=== PATIENT | female | born 2005 | race Caucasian/White ===

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

== ENCOUNTER → 2024-08-27 | Outpatient (CLI) | payer BC, SELFPAY | END | disposition home or self-care (01) | LOC: LABSPEC 22:14 | PROVIDERS: PCP Nurse Practitioner; Referring Provider Nurse Practitioner; Visit Provider Nurse Practitioner | DX: N30.90 Cystitis, unspecified without hematuria (principal); R30.0 Dysuria | CPT/HCPCS: 87077; 87086; 87088 ==

== ENCOUNTER 2024-12-03 13:39 | Emergency (ER) | payer BC, SELFPAY ==
[2024-12-03 13:40] VITALS: BP 135/70; PULSE 76; RESP 16; TEMP 36.9; O2SAT 99; BMI 37.4
--- NOTE | 2024-12-03 14:33 | EKG12_ITS ---
Test Reason : SYNCOPE Blood Pressure : */* mmHG Vent. Rate : 70 BPM Atrial Rate : 70 BPM P-R Int : 128 ms QRS Dur : 94 ms QT Int : 376 ms P-R-T Axes : -12 27 11 degrees QTcB Int : 406 ms Normal sinus rhythm Normal ECG Confirmed by Shayan Aguero ([id number]), editor in chief BO CHAVES ([id number]) on 12/04/2024 10:21:10 AM Referred By: Confirmed By: Shayan Aguero
--- NOTE | 2024-12-03 14:33 | RAD_ITS ---
PROCEDURE: CHEST PA AND LATERAL 12/03/2024 REASON FOR EXAM: SYNCOPE TECHNIQUE: Procedure Code: RADCXR Modality: DX Procedure: CHEST PA AND LATERAL COMPARISON: None FINDINGS: Hardware: EKG electrodes are seen. Heart: The heart size is normal. Mediastinum: The mediastinal contour is unremarkable. Lungs: The lungs are clear. Bones: The bones are unremarkable. RAD/Chest PA and Lateral IMPRESSION: NO ACUTE FINDINGS. Reading Location: [id number]
--- NOTE | 2024-12-03 14:48 | EX.ED.DYSGE1 ---
HPI History of Present Illness Chief Complaint: Syncope Narrative Narrative: Patient is a 19-year-old female past medical history of migraines, tachycardia who presents to the emergency department chief complaint of elevated heart rate and passing out. Patient states that last week she had 2 episodes where she folic her heart was racing really fast while working out for softball. She states that she passed out and when she woke up and EMS was there. They noted that her heart rate was around 193 bpm at that point time. States that this happened again and her heart rate was in the 180s. She states that after this episode she is extremely fatigued. Patient states that this has never happened before and parents at bedside deny any cardiac arrhythmias or cardiac issues from a family standpoint which would be similar to this. She denies any recent travel history denies any history of blood clots. States that she currently is on her menstrual cycle. [facility] Medical History Acute maxillary sinusitis, unspecified COVID-19 Migraine aura, persistent, intractable Acute maxillary sinusitis, unspecified Acute pharyngitis, unspecified Acne Metrorrhagia Right rotator cuff tendonitis Tendonitis of elbow, left celiac through scope and blood test fx L Fot 3 areas Home Medications ?Medication ?Instructions ?Recorded ?Last Taken ?Type albuterol sulfate 90 mcg/actuation 2 puff inhalation Q4H PRN 06/09/21 Unknown Rx aerosol inhaler (ProAir HFA) shortness of breath or wheezing #6.7 grams topiramate 25 mg tablet 25 mg PO DAILY 12/15/22 Unknown History spironolactone 100 mg tablet 100 mg PO BID 04/13/23 Unknown History cefdinir 300 mg capsule 300 mg PO BID #20 caps 10/11/24 Unknown Rx Allergy/AdvReac Type Severity Reaction Status Date / Time amoxicillin Allergy Intermediate Hives Verified 12/03/24 13:42 Penicillins Allergy Hives Verified 12/03/24 13:42 gluten AdvReac Intermediate u Verified 12/03/24 13:42 wheat AdvReac Intermediate u Verified 12/03/24 13:42 Family History Grandfather Heart disease pacemaker Other Asthma Breast cancer CVA (cerebral vascular accident) Diabetes Diverticulitis Hypertension Social History housing: house Smoking Status: Never smoker alcohol intake: never ROS ROS ED ROS Narrative Constitutional: Denies fevers, chills, headaches Eyes: Denies double vision Cardiovascular: Complaint of palpitations as noted above with racing heart denies any chest pain Respiratory: Denies coughing wheezing states that she was short of breath during these episodes but she was also working out and running during this Abdomen: Denies abdominal pain nausea vomit diarrhea : Denies any urinary symptoms Neurological: Denies any numbness, weakness, tingling Musculoskeletal: Denies back pain Skin: Denies any rashes or lesions EXAM Physical Exam Narrative Exam Narrative: General: Patient was lying in bed rest comfortably did not appear to be in acute distress Head: Atraumatic, normocephalic Eyes: PERRL bilateral, EOMI bilateral, no conjunctival injection noted Neck: Soft, supple and trachea midline Cardiovascular: Regular rate and rhythm no murmurs gallops rubs noted Respiratory: Clear to auscultation bilaterally Abdomen: Soft, nondistended, no tenderness palpation Extremities: +5/5 strength noted in the bilateral upper and lower extremities, radial pulses +2/4 in bilateral extremities, no pedal edema exam Neurological: Patient follow commands knew that she was at [facility] year is 2024 Skin: Warm, dry, tact no rashes or lesions noted Const Vital Signs: 12/03/24 13:40 12/03/24 14:10 12/03/24 14:10 Temperature 98.4 F Temperature Source Oral Pulse Rate 76 Respiratory Rate 16 Respiratory Effort Normal Non-Labored Normal Non-Labored Respiratory Pattern Normal Blood Pressure 135/70 H Blood Pressure Mean 91 Pulse Ox 99 Oxygen Delivery Method Room Air 12/03/24 14:49 12/03/24 14:49 12/03/24 15:00 Temperature Temperature Source Pulse Rate 80 80 Respiratory Rate 16 18 Respiratory Effort Respiratory Pattern Blood Pressure 117/80 118/90 H Blood Pressure Mean 92 99 Pulse Ox 100 99 98 Oxygen Delivery Method Room Air 12/03/24 16:33 Temperature Temperature Source Pulse Rate 72 Respiratory Rate 16 Respiratory Effort Respiratory Pattern Blood Pressure 119/80 Blood Pressure Mean 93 Pulse Ox 98 Oxygen Delivery Method MDM MDM MDM Narrative Medical decision making narrative: Patient is a 19-year-old female who presents to the emergency department with a chief complaint of palpitations with elevated heart rate. On the differential diagnosis includes but not limited to hyperthyroidism, , pulmonary embolism, paroxysmal supraventricular tachycardia or paroxysmal other cardiac arrhythmia, electrolyte abnormalities. Once workup is obtained reviewed she will be reevaluated. Patient's CBC was reviewed which showed no evidence leukocytosis white blood count normal 7.7, he was 13.8, platelet count of 299. Patient D-dimer was less than 0.27. Patient sodium normal 130, potassium normal at 4.3, creatinine normal at 0.86. Patient troponin was less than 6, EKG reviewed showed sinus rhythm with a rate of 70 bpm NE interval normal 128 no evidence of delta sign. Patient proBNP was noted be 72, TSH normal 1, free T4 and T3 normal at 1.20 and 2.9 respectively test was negative. Patient urinalysis did not show any evidence of infection and drug screen was negative. Patient's chest x-ray reviewed by myself by radiology which showed no acute cardiopulmonary processes. Did discuss case with Dr. Aguero who came down and evaluated the patient at bedside he is recommending the heart monitor which she already has ordered and will be delivered to her house within the next 1 to 2 days. He is also recommending obtaining echocardiogram however she is going back to [place] tomorrow for school and notes that insurance needs 48 hours to approve this. He states that she can then have this performed in the next 2 to 3 weeks whenever she returns home. I discussed this plan with the mother and father at bedside as well as the patient they are agreeable with this plan. Her echocardiogram will be scheduled for January 07 when she returns and her appointment with Dr. Aguero on January 09. They are advised to return with worsening symptoms or any other concerns. All question concerns answered she was discharged home in stable condition. Lab Data Labs: Laboratory Results - last 24 hr 12/03/24 12/03/24 14:45 14:54 WBC 7.7 RBC 4.58 Hgb 13.8 Hct 41.9 MCV 91.5 MCH 30.1 MCHC 32.9 RDW Std Deviation 43.5 RDW Coeff of Jimbo 13.0 Plt Count 299 MPV 10.6 Immature Gran % (Auto) 0.500 Neut % (Auto) 66.8 Lymph % (Auto) 25.2 [place] % (Auto) 4.7 Eos % (Auto) 2.3 Baso % (Auto) 0.5 Absolute Neuts (auto) 5.1 Absolute Lymphs (auto) 1.93 Nucleated RBC % 0 D-Dimer Quant (PE/DVT) < 0.27 L Sodium 138 Potassium 4.3 Chloride 104 Carbon Dioxide 21.8 Anion Gap 12 BUN 16 Creatinine 0.86 Estim Creat Clear Calc 136.77 Est GFR (MDRD) Non-Af 99 BUN/Creatinine Ratio 18.4 Glucose 79 Calcium 9.7 Magnesium 2.1 Troponin T High Sens < 6 NT pro BNP II 72 TSH 1.000 Free T4 1.20 Free T3 pg/dL 2.9 Serum , Qual NEGATIVE Urine Color Straw Urine Clarity Clear Urine pH 7.0 Ur Specific [place] 1.005 Urine Protein Negative Urine Glucose (UA) Normal Urine Ketones Negative Urine Occult Blood Negative Urine Nitrite Negative Urine Bilirubin Negative Urine Urobilinogen Normal Ur Leukocyte Esterase Negative Urine RBC 0-5 SEEN Urine WBC 0-5 SEEN Ur Squamous Epith Cells 5-10 SEEN Urine Bacteria 0 SEEN Urine Mucus 0 SEEN Urine Opiates Screen NEGATIVE U Buprenorphine Qual NEGATIVE Ur Oxycodone Screen NEGATIVE Urine Methadone Screen NEGATIVE Urine Fentanyl Screen NEGATIVE Ur Barbiturates Screen NEGATIVE Ur Phencyclidine Scrn NEGATIVE Ur Amphetamines Screen NEGATIVE U Benzodiazepines Scrn NEGATIVE Urine Cocaine Screen NEGATIVE U Cannabinoids Screen NEGATIVE Radiography Diagnostic Testing: Clinical Impression(s) from Imaging Studies Chest X-Ray 12/03/24 14:33 IMPRESSION: NO ACUTE FINDINGS. Reading Location: [facility] Discharge Plan Triage Chief Complaint: Syncope Other Complaint: Palpitations ED Provider: Rodrigo Stephen Dx/Rx/DC Orders Clinical Impression: Palpitations, Syncope, Tachycardia Prescriptions: No Action albuterol sulfate [ProAir HFA] 90 mcg/actuation HFA aerosol inhaler 2 puff inhalation Q4H PRN (Reason: shortness of breath or wheezing) Qty: 6.7 12RF topiramate 25 mg tablet 25 mg PO DAILY spironolactone 100 mg tablet 100 mg PO BID cefdinir 300 mg capsule 300 mg PO BID Qty: 20 0RF Other Ambulatory Orders: Echo Complete (Routine) Timeframe: [id number] Facility: [facility] - Location: [facility] Ordered By: Dr. Rodrigo Stephen Primary Care Provider: Mary Munoz NP Referrals: Mary Munoz STITCH BONDING MACHINE TENDER, STITCH BONDING MACHINE TENDER-C [Primary Care Provider] - Activity Restrictions/Additional Instructions: Your blood work did not show any acute findings. Wear Holter monitor as we discussed. On January 07 will be your echocardiogram. If you are having increasing symptoms or any other concerns return to the emergency department immediately. Print Language: Armenian Disposition Disposition: Home, Self Care
[2024-12-03 14:49] VITALS: BP 117/80; PULSE 80; RESP 16; O2SAT 100; O2SAT 99
[2024-12-03] MEDS: 0.9% Normal Saline (1000mL) 1,000 ML 999 ML IV (14:51)
[2024-12-03 14:56] LABS: Hematocrit 41.9 % (37-47); Hemoglobin 13.8 g/dL (12.0-15.0); Immature Granulocytes Count 0.040 X10^3/uL (0.0-0.0); Mean Corp Hgb Conc 32.9 g/dL (32-36); Mean Corpuscular Volume 91.5 fL (81-99); Mean Platelet Vol. 10.6 fl (6.2-12.0); NRBC Flagged by Analyzer 0 % (0-5); Platelet Count 299 K/mm3 (150-450); RBC Distribution Width CV 13.0 % (11.6-14.6); RBC Distribution Width SD 43.5 fl (35.1-43.9); Red Blood Count 4.58 M/mm3 (4.2-5.4); White Blood Count 7.7 K/mm3 (4.4-11.0)
[2024-12-03 14:59] LABS: Mucous, Urine 0 SEEN /hpf (<or=2+)
[2024-12-03 15:00] VITALS: BP 118/90; PULSE 80; RESP 18; O2SAT 98
[2024-12-03 15:05] LABS: Glucose, Dipstick Normal (Normal); Ketone-Dipstick Negative (Negative); Leukocyte Esterase-Dipstick Negative /ul (Negative); Nitrite-Dipstick Negative (Negative); Occult Blood-Urine Negative /ul (Negative); Protein-Dipstick Negative (Negative); Specific Gravity, Urine 1.005 (1.002-1.030); Urine Bilirubin Dipstick Negative (Negative)
[2024-12-03 15:06] LABS: Color, Urine Straw (Yellow)
[2024-12-03 15:28] LABS: Red Blood Cells-Urine 0-5 SEEN /hpf (0-5)
[2024-12-03 15:29] LABS: Squamous Epithelial Cells - UA 5-10 SEEN /hpf (5-10)
[2024-12-03 15:40] LABS: Anion Gap 12 (5-15); BUN 16 mg/dL (4-19); BUN/Creat Ratio 18.4 RATIO (10-20); Calcium,Total 9.7 mg/dL (7.6-11.0); Carbon Dioxide 21.8 mmol/L (21.0-32.0); Chloride 104 mmol/L (98-108); Estimated Creatinine Clearance 136.77 ml/min (50-250); Free T3 2.9 pg/mL (2.18-3.98); Glucose 79 mg/dL (70-99); Magnesium 2.1 mg/dL (1.5-2.2); Potassium 4.3 mmol/L (3.3-5.1); Pro- Brain NATRIURETIC PEPTIDE 72 pg/mL (<=450); Troponin T High Sensitivity < 6 ng/L (<=14)
[2024-12-03 15:41] LABS: Barbiturate Urine NEGATIVE (< 200 ng/mL); Benzodiazepine Urine NEGATIVE (< 200 ng/mL); PCP Urine NEGATIVE (< 25 ng/mL); THC Urine NEGATIVE (< 50 ng/mL)
[2024-12-03 15:43] LABS: Internal QC Validated? YES +Cl - CLEAR BKGD; Pregnancy, Serum, hCG Quali. NEGATIVE Negative; Record Kit Lot#, Serum Preg. 947241
[2024-12-03 15:45] LABS: D-Dimer Quantitative (DVT/PE) < 0.27 FEU/ug/m (0.27-0.49)
--- NOTE | 2024-12-03 16:20 | CON.PCM.CA_ITS ---
Assessment & Plan Assessment/Plan (1) Syncope and collapse: PLAN: The patient's had 2 events both which occurred with heavy exertion running sprints. She did not get hurt with either event. She was able to get herself down seated on the ground before she went completely out on the first event the second event she never lost consciousness. She was able to capture on her iWatch that her heart rate was in the 200 range on both events. She was not able to capture a rhythm strip. The patient's thyroid functions are normal BNP and troponins are negative all her electrolytes are within acceptable ranges. It does sound like this may have been some type of supraventricular tachycardia it could have been sinus tachycardia in the face of relative dehydration. Very could be some type of supraventricular tachy arrhythmia. I did teach her how to use her wearable to check a rhythm strip if she feels this in the future. She also has a 14-day event monitor on order it should be at her home in the next 48 hours. I did go over with her that she should limit her activities to less stressful workouts then running the sprints. She should do fielding and hitting drills but I would not recommend she run sprints until we get to the bottom of this. When she gets a 14-day event monitor I do want her to push it a little bit to see if she can recreate similar symptoms. Will also see if we can get an echocardiogram done in the next 48 hours prior to her going back to [place]. The patient appears to be in good physical shape and she was able to get herself to the ground did with the prodrome that she had. Also went over with her to make certain she stays well-hydrated with electrolyte solutions and wears tight fitting lower extremity compression type socks. (2) Tachycardia: PLAN: Patient's watch identified heart rates of 200 when these 2 events occurred. But she was not aware she could capture this on her iWatch. We did teach her how to use the wearable and to capture the fast heart rate should her watch to detect fast heart rates in the future. The 2D echocardiogram will be performed and the 14-day event monitor. If neither of these show anything significant I would recommend that we consider a regular treadmill stress test to make certain she is safe to go back to high intensity workouts. PLAN: Plan 1. Will obtain 2D echocardiogram as soon as possible. 2. Patient to apply 14-day event monitor I went over how to utilize it and activate it should she feel symptoms. 3. Went over with her how to utilize her wearable to capture rhythm strips as well. 4. It appears from a cardiovascular standpoint and physical exam this is probably some type of supraventricular arrhythmia. 5. Recommend that she stay well-hydrated with electrolyte solutions. 6. Pending outcome of the echo she should be able to return to hitting and fielding drills. I would avoid the sprints and high intensity running drills that precipitated her event until we can get the 14-day event monitor completed. 7. Apparently she has a game scheduled for this weekend we will have to see how the echocardiogram looks and how she feels in the interim before making a final decision on the game. HPI Consult Data Date of Consult: 12/03/24 HPI Narrative Reason for Consultation: Syncope HPI Narrative: JAZ MOREL, is a 19 F who presents with 2 episodes of syncope that occurred with significant exertion. 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 She was working out last Tuesday and running sprints when she began develop tunnel vision everything got real dark she was able to sit down and then she went completely out. vb net programmer were called and she came back to and was lethargic but easily arousable and responded. The patient then had another episode when she was running sprints on Tuesday similar sensation a prodrome of tunnel vision she was able to lay down and it resolved spontaneously. The patient came home from the weekend here in [place], she goes to school in [place] [facility]. The patient was able to document on her iWatch heart rates of 200 on both episodes. She was not aware that she could obtain a rhythm strip which I taught her how to use her wearable today. She is scheduled to have a 14-day event monitor that is on order. The patient also has a history of migraine headaches and celiac disease. She did note that her menses started on Tuesday. She has never had episodes like this that she remembers in the past. Her mother and father were in attendance in the room during the interview. They do not remember ever having syncopal spells either. There is no pertinent family history. The patient lab work has all come back within acceptable ranges. Thyroid functions are normal urine drug screen is negative electrolytes and renal function are normal CBC is normal. ECG shows normal sinus rhythm and is normal. [facility] Medical History Acute maxillary sinusitis, unspecified COVID-19 Migraine aura, persistent, intractable Acute maxillary sinusitis, unspecified Acute pharyngitis, unspecified Acne Metrorrhagia Right rotator cuff tendonitis Tendonitis of elbow, left celiac through scope and blood test fx L Fot 3 areas Home Medications ?Medication ?Instructions ?Recorded ?Last Taken ?Type albuterol sulfate 90 mcg/actuation 2 puff inhalation Q 4H PRN 06/09/21 Unknown Rx aerosol inhaler (ProAir HFA) shortness of breath or wh eezing #6.7 grams topiramate 25 mg tablet 25 mg PO DAILY 12/15/22 Unkn own History spironolactone 100 mg tablet 100 mg PO BID 04/13/23 Un known History cefdinir 300 mg capsule 300 mg PO BID #20 caps 10/11 Unknown Rx Allergy/AdvReac Type Severity Reaction Status Date / Time amoxicillin Allergy Intermediate Hives Verified 12/03/24 13:42 Penicillins Allergy Hives Verified 12/03/24 13:42 gluten AdvReac Intermediate u Verified 12/03/24 13:42 wheat AdvReac Intermediate u Verified 12/03/24 13:42 Family History Grandfather Heart disease pacemaker Other Asthma Breast cancer CVA (cerebral vascular accident) Diabetes Diverticulitis Hypertension Social History housing: house Smoking Status: Never smoker alcohol intake: never ROS Constitutional Constitutional: Reports as per HPI Eyes Eyes: Reports as per HPI ENT HEENT: Reports systems reviewed and no addt'l complaints, except as documented Cardiovascular Cardiovascular: Reports as per HPI Respiratory/Chest Respiratory/Chest: Reports as per HPI Gastrointestinal Gastrointestinal: Reports as per HPI Genitourinary Genitourinary: Reports as per HPI Musculoskeletal Musculoskeletal: Reports systems reviewed and no addt'l complaints, except as documented Integumentary Integumentary: Reports systems reviewed and no addt'l complaints, except as documented Neurologic Neurologic: Reports as per HPI Psychiatric Psychiatric: Reports systems reviewed and no addt'l complaints, except as documented Endocrine Endocrinology: Reports as per HPI Hematologic/Lymphatic Hematologic/Lymphatic: Reports systems reviewed and no addt'l complaints, except as documented Allergic/Immunologic Allergic/Immunologic: Reports systems reviewed and no addt'l complaints, except as documented Physical Exam Const alert and oriented x3 HEENT normocephalic Eyes EOMs intact bilaterally Neck no JVD and no carotid bruits Chest inspection of chest normal Resp normal respiratory effort and clear to auscultation bilaterally Cardio Rate: regular rate Rhythm: regular rhythm Heart Sounds: S1 normal and S2 normal; Negative for click, gallop or murmur Peripheral Pulses: radial pulses present bilateral 2+ and posterior tibial pulses present bilateral 2+ GI normal to inspection, nondistended, normoactive bowel sounds Extremity no pedal edema Neuro Neuro Narrative: Alert and oriented x 3 Psych mental status grossly normal Charges/Coding Visit Charges Inpatient E&M: 84832 Init Hosp L2 Objective Data Vital Signs: Vital Signs Temp Pulse Resp BP Pulse Ox O2 Del Method 98.4 F 80 18 118/90 H 98 Room Air 12/03/24 13:40 12/03/24 15:00 12/03/24 15:00 12/03/24 15:00 12/03/24 15:00 12/03/24 14:49 Oxygen Delivery Method Room Air Weight: 246 lb 4.8 oz Body Mass Index (BMI) 37.4 Lab / Micro Data Attestation: I reviewed the patient's lab results. 12/03/24 14:45 12/03/24 14:45 Labs: Laboratory Results - last 24 hr 12/03/24 14:45: WBC 7.7, RBC 4.58, Hgb 13.8, Hct 41.9, MCV 91.5, MCH 30.1, MCHC 32.9, RDW Std Deviation 43.5, RDW Coeff of Jimbo 13.0, Plt Count 299, MPV 10.6, Immature Gran % (Auto) 0.500, Neut % (Auto) 66.8, Lymph % (Auto) 25.2, [place] % (Auto) 4.7, Eos % (Auto) 2.3, Baso % (Auto) 0.5, Absolute Neuts (auto) 5.1, Absolute Lymphs (auto) 1.93, Nucleated RBC % 0, D-Dimer Quant (PE/DVT) < 0.27 L, Sodium 138, Potassium 4.3, Chloride 104, Carbon Dioxide 21.8, Anion Gap 12, BUN 16, Creatinine 0.86, Estim Creat Clear Calc 136.77, Est GFR (MDRD) Non-Af 99, BUN/Creatinine Ratio 18.4, Glucose 79, Calcium 9.7, Magnesium 2.1, Troponin T High Sens < 6, NT pro BNP II 72, TSH 1.000, Free T4 1.20, Free T3 pg/dL 2.9, Serum , Qual NEGATIVE 12/03/24 14:54: Urine Color Straw, Urine Clarity Clear, Urine pH 7.0, Ur Specific [place] 1.005, Urine Protein Negative, Urine Glucose (UA) Normal, Urine Ketones Negative, Urine Occult Blood Negative, Urine Nitrite Negative, Urine Bilirubin Negative, Urine Urobilinogen Normal, Ur Leukocyte Esterase Negative, Urine RBC 0-5 SEEN, Urine WBC 0-5 SEEN, Ur Squamous Epith Cells 5-10 SEEN, Urine Bacteria 0 SEEN, Urine Mucus 0 SEEN, Urine Opiates Screen NEGATIVE, U Buprenorphine Qual NEGATIVE, Ur Oxycodone Screen NEGATIVE, Urine Methadone Screen NEGATIVE, Urine Fentanyl Screen NEGATIVE, Ur Barbiturates Screen NEGATIVE, Ur Phencyclidine Scrn NEGATIVE, Ur Amphetamines Screen NEGATIVE, U Benzodiazepines Scrn NEGATIVE, Urine Cocaine Screen NEGATIVE, U Cannabinoids Screen NEGATIVE Rhythm Strip Rhythm Strip: Sinus Rhythm Rate: 81 Cardiology Labs/Tests 12/03/24 14:45: WBC 7.7, RBC 4.58, Hgb 13.8, Hct 41.9, MCV 91.5, MCH 30.1, MCHC 32.9, Plt Count 299, MPV 10.6, Immature Gran % (Auto) 0.500, Neut % (Auto) 66.8, Lymph % (Auto) 25.2, [place] % (Auto) 4.7, Eos % (Auto) 2.3, Baso % (Auto) 0.5, Absolute Neuts (auto) 5.1, Nucleated RBC % 0, D-Dimer Quant (PE/DVT) < 0.27 L, Sodium 138, Potassium 4.3, Chloride 104, Carbon Dioxide 21.8, Anion Gap 12, BUN 16, Creatinine 0.86, Est GFR (MDRD) Non-Af 99, BUN/Creatinine Ratio 18.4, Glucose 79, Calcium 9.7, Magnesium 2.1 12/03/24 14:54: Urine Color Straw, Urine Clarity Clear, Urine pH 7.0, Ur Specific [place] 1.005, Urine Protein Negative, Urine Glucose (UA) Normal, Urine Ketones Negative, Urine Occult Blood Negative, Urine Nitrite Negative, Urine Bilirubin Negative, Urine Urobilinogen Normal, Ur Leukocyte Esterase Negative, Urine RBC 0-5 SEEN, Urine WBC 0-5 SEEN Rhythm: EKG: ECHO: Stress Test: Cardiac Cath: PCI: CT Surgery: Holter monitor: EPS: PPM: CXR: Chest CT Scan: Radiography Diagnostic Testing: Radiology Impression Chest X-Ray 12/03/24 14:33 IMPRESSION: NO ACUTE FINDINGS. Reading Location: [id number] AIME Risk Score for UA/STEMI Assesmment (YES = 1) Risk Stratification Applicable: No
[2024-12-03 16:33] VITALS: BP 119/80; PULSE 72; RESP 16; O2SAT 98
[2024-12-03 17:00] VITALS: BP 120/70; PULSE 76; RESP 18; O2SAT 98
[2024-12-03 17:09] VITALS: BP 120/70; PULSE 76; RESP 18; TEMP 37.1; O2SAT 98
[2024-12-03 17:14] LABS: Troponin T High Sens 2 HR < 6 ng/L (<=14)
== END 2024-12-03 17:48 | disposition home or self-care (01) ==
PROVIDERS: Emergency Provider Emergency Medicine; PCP Nurse Practitioner; Visit Provider Emergency Medicine
DX: R55 Syncope and collapse (principal); R00.2 Palpitations; R00.0 Tachycardia, unspecified
CPT/HCPCS: 71046; 80048; 80307; 81001; 83735; 83880; 84439; 84443; 84481; 84484; 84703; 85025; 85379; 93005; 96360; 96361; 99284; A4216

== ENCOUNTER → 2025-01-08 | Outpatient (CLI) | payer BC, SELFPAY ==
--- NOTE | 2025-01-08 11:01 | ECHOD_ITS ---
Reason For Study Reason For Study: Palpitations Procedure This was a 2D Doppler, Color Flow transthoracic echocardiogram. Exam performed in department. Left Ventricle Normal LV size. The left ventricular ejection fraction is 55 %. Normal diastology for age. No regional wall motion abnormalities noted. Right Ventricle Normal RV size. Normal systolic function. Atria Normal left atrium. Normal right atrium. Mitral Valve Mild (1+) eccentric mitral valve insufficiency. Tricuspid Valve Normal tricuspid valve. Mild (1+) tricuspid valve insufficiency. Pulmonary artery systolic pressure is 17 mmHg. Aortic Valve Normal aortic valve. Trisinus/trileaflet aortic valve. Pulmonic Valve Normal pulmonic valve. Great Vessels Normal aortic root. The pulmonary artery is normal size. Inferior vena cava collapse with respiration. Pericardium/Pleural No pericardial effusion. MMode/2D Measurements & Calculations LVIDd: 4.9 cm IVSd: 0.93 cm Ao root diam: 2.7 cm LVIDs: 3.4 cm LVPWd: 1.00 cm RVDd: 3.8 cm FS: 31.0 % LAV(MOD-bp): 44.7 ml LVAd ap4: 34.0 cm2 SV(MOD-sp4): 64.4 ml LAV(MOD-bp) Indexed: 20.2 ml/m2 LVLd ap4: 8.6 cm SI(MOD-sp4): 29.1 ml/m2 LAV(MOD-sp2): 47.1 ml EDV(MOD-sp4): 113.8 ml LAV(MOD-sp4): 34.9 ml EDV(sp4-el): 114.8 ml LVAs ap4: 20.6 cm2 LVLs ap4: 7.3 cm ESV(MOD-sp4): 49.5 ml ESV(sp4-el): 49.2 ml EF(MOD-sp4): 56.5 % EF(sp4-el): 57.1 % SV(sp4-el): 65.6 ml LA A4 area: 15.9 cm2 LA dimension(2D): 3.4 cm RA A4 area: 14.1 cm2 TAPSE: 2.4 cm Time Measurements MV dec time: 0.19 sec Doppler Measurements & Calculations MV E max berto: 108.8 cm/sec Lat Peak E' Berto: 22.1 cm/sec Med Peak E' Berto: 18.8 cm/sec MV A max ebrto: 44.3 cm/sec E/E' lat: 4.9 E/E' med: 5.8 MV E/A: 2.5 MV V2 max: 113.9 cm/sec MV P1/2t max berto: 115.1 cm/sec Ao V2 max: 123.2 cm/sec MV max P.2 mmHg MV P1/2t: 61.1 msec Ao max P.1 mmHg MV V2 mean: 53.7 cm/sec Ao V2 mean: 87.0 cm/sec MV mean P.5 mmHg MV dec slope: 551.3 cm/sec2 Ao mean P.4 mmHg MV V2 VTI: 32.1 cm MVA(P1/2t): 3.6 cm2 Ao V2 VTI: 26.0 cm AV (velocity ratio): 0.87 LV V1 max: 100.0 cm/sec MR max berto: 497.0 cm/sec PA V2 max: 100.2 cm/sec LV V1 max P.0 mmHg MR max P.8 mmHg LV V1 mean P.3 mmHg LV V1 mean: 70.3 cm/sec LV V1 VTI: 22.7 cm TR max berto: 191.7 cm/sec TR max P.7 mmHg ECHO/Echo Complete Interpretation Summary Normal LV size. The left ventricular ejection fraction is 55 %. Structurally normal valves. Ordering Physician: Rodrigo Stephen Referring Physician: Mary Munoz Performed By: Bryan Lozada RCS
== END | disposition home or self-care (01) ==
PROVIDERS: PCP Nurse Practitioner; Referring Provider Emergency Medicine; Visit Provider Emergency Medicine
DX: R55 Syncope and collapse (principal); R00.2 Palpitations
CPT/HCPCS: 93306

== ENCOUNTER → 2025-03-11 | Outpatient (CLI) | payer BC, SELFPAY ==
--- NOTE | 2025-03-11 11:36 | STRESSREP_ITS ---
Stress Test Report Date: 03/11/2025 Procedure: Exercise tolerance test Indications: Syncope/tachycardia Consent: Per the patient Procedure: The patient exercised on a Jovany protocol for 9 minutes achieving a peak heart rate of 184 bpm (92% predicted maximal heart rate) with a peak blood pressure 214/64 mmHg and a peak MET capacity of approximately 10.1 MET's. The baseline ECG demonstrated sinus rhythm. The peak exercise ECG did not show any ischemic changes. No significant cardiac dysrhythmias noted. The functional capacity was considered very good. The patient had no complaints of chest discomfort during exercise or recovery. The examination was discontinued secondary to target heart rate being achieved. Impression: 1. Technically adequate (percent predicted maximal heart rate greater than 85%) exercise tolerance test 2. Peak exercise ECG with no ischemic changes. Impaired heart rate recovery. 3. Exaggerated blood pressure response to exercise This note was generated with [employer] software. It may contain incorrect words, spelling, and punctuation that were not noted in checking the note before signing.
== END | disposition home or self-care (01) ==
LOC: CVS 09:41
PROVIDERS: PCP Nurse Practitioner; Referring Provider Internal Medicine Cardiovascular Disease; Visit Provider Internal Medicine Cardiovascular Disease
DX: R55 Syncope and collapse (principal); R00.0 Tachycardia, unspecified
CPT/HCPCS: 93017